=== PATIENT | female | born 1990 | race Caucasian/White ===

== ENCOUNTER 2018-11-21 21:50 | Inpatient (IN) | payer BC ==
[~2018-11-21 21:50] MED LIST: RINGERS SOLUTION,LACTATED 1,000 ML IV ONE
[2018-11-21 22:38] LABS: APPEARANCE,URINE SLIGHTLY-CLOUDY; BILIRUBIN,URINE NEGATIVE (NEGATIVE); COLOR,URINE YELLOW; GLUCOSE, URINE NEGATIVE (NEGATIVE); KETONES,URINE NEGATIVE (NEGATIVE); LEUKOCYTE ESTERASE,URINE SMALL (NEGATIVE); NITRITE,URINE NEGATIVE (NEGATIVE); PROTEIN,URINE 100 mg/dL (NEGATIVE); URINE SPECIFIC GRAVITY 1.009; UROBILINOGEN,URINE NEGATIVE mg/dL (<2.0)
[2018-11-21 22:57] LABS: URINE AMPHETAMINES SCREEN NEGATIVE; URINE BARBITURATES SCREEN NEGATIVE; URINE BENZODIAZEPINES SCREEN NEGATIVE; URINE COCAINE SCREEN NEGATIVE; URINE MARIJUANA (THC) SCREEN NEGATIVE; URINE METHADONE SCREEN NEGATIVE; URINE PHENCYCLIDINE SCREEN NEGATIVE
--- NOTE | 2018-11-21 23:57 | Admission Physical ---
Datetime Report Generated by CPN: 11/21/2018 23:57 CURRENT ADMISSION Chief Complaint: Suspected Ruptured Membranes Indication for Induction: Not Applicable Admit Impression : Term, Intrauterine ; No Active Labor; Ruptured Membranes Admit Plan: Admit to Unit; Initiate Labor Protocol ALLERGIES Medication Allergies: penicillin G (11/21/2018) OBSTETRICAL HISTORY EDC: 12/07/2018 00:00 PHYSICAL EXAM General: Normal HEENT: Normal Neurologic: Normal Thyroid: Normal Heart: Normal Lungs: Normal Breast: Normal Back: Normal Abdomen: Normal Genitourinary Exam: Normal Extremities: Normal DTRs: Normal Pelvic Type: Adequate Vital Signs: Reviewed; Within Normal Limits VAGINAL EXAM Dilatation: 1 Effacement: 70% Station: -1 Contraction Comments: q 2-3 MEMBRANES Pooling: Positive Membranes: Ruptured Amniotic Fluid Color: Clear FETUS A EGA: 37.5 Monitoring: External US FHR- Baseline: 130-140s Variability: Moderate 6-25bpm Accelerations: 15X15 Decelerations: None FHR Category: Category I Admit Comment: presents to L_D c/o leakage of fluid. She states that her water broke at 2000. She was planning to deliver at a birthing center in [place]. She is visiting here. She would like little to no intention--she declined GBS prophylaxis. She is GBS POSITIVE. She stated that she would rather the get antibx. After much discussion, she agreed to allow labs to be drawn, an IV placed and monitoring. We spoke with her animal ecologist who stated that she would have treated her GBS also. INFORMED CONSENT Signature: with User ID: [email or web address]
[2018-11-22] MEDS ORDERED: CLINDAMYCIN 900 MG/D5W RTU 900 MG/50 ML RTUPB IV ONE ×3 (00:31→17:12)
[2018-11-22] MEDS ORDERED: AMMONIA INHALANTS 10 AMPUL/BOX IH ONE (00:33)
[2018-11-22 00:45] LABS: ABSOLUTE LYMPHOCYTES (AUTO) 1.1 10^3/uL (0.5-4.7); ABSOLUTE MONOCYTES (AUTO) 0.4 10^3/uL (0.1-1.4); ABSOLUTE NEUT (AUTO) 6.7 10^3/uL (1.7-8.2); BASOPHILS % (AUTO) 0.5 % (0-2); EOSINOPHILS % (AUTO) 0.4 % (0-6); HEMATOCRIT 33.8 % (36.0-47.0); HEMOGLOBIN 11.3 g/dL (12.0-15.5); LYMPHOCYTES % (AUTO) 13.1 % (13-45); MEAN CORPUSCULAR HEMOGLOBIN 28.3 pg (27.0-33.4); MEAN CORPUSCULAR HGB CONC 33.6 g/dL (32.0-36.0); MEAN CORPUSCULAR VOLUME 84 fl (80-97); MONOCYTES % (AUTO) 5.3 % (3-13); PLATELET COUNT 133 10^3/uL (150-450); RED BLOOD COUNT 4.01 10^6/uL (3.72-5.28); RED CELL DISTRIBUTION WIDTH 13.8 % (11.5-14.0); SEGMENTED NEUTROPHILS % (AUTO) 80.7 % (42-78); TOTAL CELLS COUNTED % (AUTO) 100 %; WHITE BLOOD COUNT 8.3 10^3/uL (4.0-10.5)
[2018-11-22] MEDS ORDERED: CLINDAMYCIN 900 MG/D5W RTU 900 MG/50 ML RTUPB IV SCH (06:00)
[2018-11-22] MEDS: CLINDAMYCIN 900 MG/D5W RTU 900 MG/50 ML RTUPB IV SCH ×2 (07:44→11:03)
[2018-11-22] MEDS ORDERED: GENTAMICIN SULFATE INJ 80 MG/2 ML VIAL ONE ×2 (13:51→13:52)
[2018-11-22] MEDS ORDERED: GENTAMICIN SULFATE INJ 80 MG/2 ML VIAL IV ONE (14:00)
[2018-11-22] MEDS ORDERED: OXYTOCIN/NORMAL SALINE 20 UNIT/1,000 ML RTUINJ ONE (19:05)
[2018-11-22] MEDS ORDERED: LIDOCAINE 1% INJ-PF (10 MG/ML) 30 ML SDV ONE (21:08)
[2018-11-22] MEDS ORDERED: MISOPROSTOL 0.2 MG TABLET ONE (21:11)
[2018-11-22] MEDS ORDERED: FENTANYL CITRATE INJ/PF 100 MCG/2 ML AMPUL ONE (21:13)
[2018-11-22] MEDS ORDERED: ACETAMINOPHEN 325 MG TABLET PO PRN (21:49)
[2018-11-22] MEDS ORDERED: GLYCERIN/WITCH HAZEL LEAF 1 EACH MED..WIPE TP PRN (21:49)
[2018-11-22] MEDS ORDERED: NA PHOS,M-B/NA PHOS,DI-BA (ADULT) 133 ML ENEMA PR PRN (21:49)
[2018-11-22] MEDS ORDERED: PROMETHAZINE HCL 25 MG TABLET PO PRN (21:49)
[2018-11-22] MEDS ORDERED: PROMETHAZINE HCL INJ 25 MG/1 ML VIAL IV PRN (21:49)
[2018-11-22] MEDS ORDERED: ZOLPIDEM TARTRATE 5 MG TABLET PO PRN (21:49)
[2018-11-22] MEDS ORDERED: DIPH/PERTUSS(ACELL)/TETANUS VAC/PF 0.5 ML SYR (>=10YO) IM PRN (21:49)
[2018-11-22] MEDS ORDERED: PROMETHAZINE HCL 25 MG SUPP.RECT PR PRN (21:49)
[2018-11-22] MEDS ORDERED: OXYTOCIN/NORMAL SALINE 20 UNIT/1,000 ML RTUINJ IV PRN (21:49)
[2018-11-22] MEDS ORDERED: DIPHENHYDRAMINE HCL 25 MG CAPSULE PO PRN (21:49)
[2018-11-22] MEDS ORDERED: ACETAMINOPHEN WITH CODEINE #3 TABLET PO PRN ×2 (21:49)
[2018-11-22] MEDS ORDERED: PSEUDOEPHEDRINE HCL 30 MG TABLET PO PRN (21:49)
[2018-11-22] MEDS ORDERED: DIBUCAINE 1% OINTMENT 56 GM TP PRN (21:49)
[2018-11-22] MEDS ORDERED: MEASLES,MUMPS&RUBELLA VACC/PF 0.5 ML VIAL SUBCUT PRN (21:49)
[2018-11-22] MEDS ORDERED: BENZOCAINE/MENTHOL AEROSOL SPRAY 56 ML TOP PRN (21:49)
[2018-11-22] MEDS ORDERED: MAGNESIUM HYDROXIDE SUSP 30 ML UDCUP PO PRN (21:49)
--- NOTE | 2018-11-22 22:58 | Delivery Summary ---
Del Sum A-C Datetime Report Generated by CPN: 11/22/2018 22:58 DELIVERY PERSONNEL DELIVERY PERSONNEL: [id number] Delivery Doctor:: Deborah Gutierrez MD Labor and Delivery Nurse:: Lesley William RNautomotive porter Nurse:: Corina Galdamez RN Home Care Aide/A CLASS LINEMAN: Mandy Green, ST MATERNAL INFORMATION Delivery Anesthesia: None Medications After Delivery: Pitocin Bolus-Please Comment; Pitocin Drip 20 Units/1000ml NSS Meds After Delivery Comment: NS with Pitocin 20 units/Liter Maternal Complications: Premature Rupture of Membranes; Prolonged Labor > 20 Hrs; Prolonged Second Stage > 2 Hrs Provider Comments: VMI delivered in Direct OA presentation with tight nuchal cord delivered through. Shoulders and body delivered through. Cord doubly clamped and cut. Infant to maternal abdomen for NRP. Placenta delivered intact spontaneously. FF at U. 2nd degree perineal laceration repaired with good hemostasis. Mother and baby stable upon provider leaving the room. LABOR SUMMARY EDC: 12/07/2018 00:00 No. Babies in Womb: 1 Attempted: No Labor Anesthesia: None LABOR INFORMATION Reason for Induction: Not Applicable Onset of Labor: 11/21/2018 20:00 Complete Dilatation: 11/22/2018 16:10 Oxytocin: Augmentation Group B Beta Strep: positive Antibiotics # of Doses: 3 Antibiotics Time of Last Dose: 1718 Name of Antibiotic Given: clindamycin Steroids Given: None Reason Steroids Not Administered: Not Applicable MEMBRANES Membranes Rupture Method: Spontaneous Rupture of Membranes: 11/21/2018 20:00 Length of Rupture (hr): 25.13 Amniotic Fluid Color: Clear Amniotic Fluid Amount: Small Amniotic Fluid Odor: Normal STAGES OF LABOR Stage 1 hr: 20 Stage 1 min: 10 Stage 2 hr: 4 Stage 2 min: 58 Stage 3 hr: 0 Stage 3 min: 7 Total Time in Labor hr: 25 Total Time in Labor min: 15 VAGINAL DELIVERY Episiotomy: None Laceration #1: Perineal Laceration Extension #1: Second Degree Laceration Repair: Yes Laceration Repair Note: 2nd degree laceration repaired in usual layered fashion Sponge Count Correct: Yes Sharps Count Correct: Yes CSECTION DELIVERY Primary Indication: N/A Secondary Indication: N/A CSection Incidence: N/A Labor: N/A Elective: N/A CSection Incision: N/A BABY A INFORMATION Infant Delivery Date/Time: 11/22/2018 21:08 Method of Delivery: Vaginal Born in Route : No : N/A Forceps: N/A Vacuum Extraction: N/A Shoulder Dystocia : No PRESENTATION/POSITION BABY A Presentation: Cephalic Cephalic Presentation: Vertex Vertex Position: OA Breech Presentation: N/A PLACENTA INFORMATION BABY A Placenta Delivery Time : 11/22/2018 21:15 Placenta Method of Delivery: Spontaneous Placenta Status: Delivered SCORES BABY A Heart Rate 1 min: >100 bpm Resp Effort 1 min: Good Cry Reflex Irritability 1 min: Cough or Sneeze or Pulls Away Muscle Tone 1 min: Active Motion Color 1 min: Body [place], Extremities Blue Resuscitation Effort 1 min: Tactile Stimulation SCORE 1 MIN: 9 Heart Rate 5 min: >100 bpm Resp Effort 5 min: Good Cry Reflex Irritability 5 min: Cough or Sneeze or Pulls Away Muscle Tone 5 min: Active Motion Color 5 min: Body [place], Extremities Blue Resuscitation Effort 5 min: Tactile Stimulation SCORE 5 MIN: 9 INFORMATION BABY A Gestational Age at Delivery: 37.6 Gestational Status: Early Term- 37- 38.6 Weeks Outcome : Liveborn Condition : Stable Infant Sex: Male IDENTIFICATION BABY A Verification Date/Time: 11/22/2018 22:23 ID Band Number: [id number] Mother's Name Verified: Yes Infant RN Verifying : NDoyle RN, BRing RN WEIGHT/LENGTH BABY A Birthweight (gm): 2957 Infant Weight (lb): 6 Infant Weight (oz): 8 Infant Length (in): 19.50 Length (cm): 49.53 CORD INFORMATION BABY A No. Cord Vessels: 3 Nuchal Cord : Around Neck x1, Tight Cord Blood Taken: Yes-For Storage (Mom's Blood type +) Infant Suction: None ASSESSMENT BABY A Infant Complications: Multiple Variable Decels Physical Findings at Delivery: Caput Succedaneum; Molding of the Head Skin to Skin: Yes Infant Care By: Lai RN Transferred To: Remains with Mother BABY B INFORMATION : N/A SIGNATURES Signature: with User ID: [email or web address]
[2018-11-23] MEDS: IBUPROFEN 800 MG TABLET PO SCH ×4 (00:14→21:17)
[2018-11-23] MEDS: FAMOTIDINE 20 MG TABLET PO SCH ×3 (00:14→21:13)
[2018-11-23] MEDS: GENTAMICIN SULFATE INJ 80 MG/2 ML VIAL IV SCH ×2 (06:08→14:01)
[2018-11-23] MEDS: CLINDAMYCIN 900 MG/D5W RTU 900 MG/50 ML RTUPB IV SCH (06:09)
[2018-11-23 07:23] LABS: HEMATOCRIT 28.1 % (36.0-47.0); HEMOGLOBIN 9.4 g/dL (12.0-15.5); MEAN CORPUSCULAR HEMOGLOBIN 28.4 pg (27.0-33.4); MEAN CORPUSCULAR HGB CONC 33.6 g/dL (32.0-36.0); MEAN CORPUSCULAR VOLUME 85 fl (80-97); PLATELET COUNT 121 10^3/uL (150-450); RED BLOOD COUNT 3.32 10^6/uL (3.72-5.28); RED CELL DISTRIBUTION WIDTH 14.1 % (11.5-14.0); WHITE BLOOD COUNT 12.2 10^3/uL (4.0-10.5)
[2018-11-23] MEDS: DOCUSATE SODIUM 100 MG CAPSULE PO SCH ×2 (09:51→17:57)
[2018-11-23] MEDS: FERROUS SULFATE 325 MG TABLET PO SCH ×2 (09:51→17:57)
[2018-11-23] MEDS: SENNOSIDES/DOCUSATE 8.6-50 MG 1 EACH TABLET PO SCH (09:52)
[2018-11-23] MEDS: PRENATAL VITAMIN W DHA CAPSULE PO SCH (09:52)
--- NOTE | 2018-11-23 11:41 | PDOC PROGRESS REPORT ---
Subjective-OB Progress Note for:: 11/23/18 Subjective: reports bleeding slowing, pain controlled with current meds. denies needs. Physical Exam (OB) Vital Signs: Temp Pulse Resp BP Pulse Ox 98.2 F 76 17 95/51 L 95 11/23/18 07:17 11/23/18 07:17 11/23/18 07:17 11/23/18 07:17 11/23/18 07:17 Intake & Output 11/22/18 11/23/18 11/24/18 06:59 06:59 06:59 Intake Total 266 Balance 266 Weight 72.1 kg - Abdomen Description: Soft Hernia Present: No Fundal Description: Firm Fundal Height: u/u - u/2 - Abdominal Distension: No distension Tenderness: Nontender - Extremities Lower extremities: Chapo's sign - neg Calf: Normal, Nontender Objective-Diagnostic Laboratory: 11/23/18 07:02 11/23/18 07:02 WBC 12.2 H RBC 3.32 L Hgb 9.4 L Hct 28.1 L MCV 85 MCH 28.4 MCHC 33.6 RDW 14.1 H Plt Count 121 L Assessment and Plan(PN) - Assessment and Plan (1) Vaginal delivery Is this a current diagnosis for this admission?: Yes - Time Spent with Patient Time with patient: Less than 15 minutes Medications reviewed and adjusted accordingly: Yes - Disposition Anticipated Discharge: Home Within: within 24 hours
[2018-11-24] MEDS: IBUPROFEN 800 MG TABLET PO SCH ×2 (06:17→13:06)
--- NOTE | 2018-11-24 10:24 | PDOC DISCHARGE SUMMARY ---
Final Diagnosis Discharge Date: 11/24/18 - PP Day #2, doing well, here from [facility] there, her is a Motion Picture Camera Operator for [employer] and they were in [place] over the weekend. GBS+ A+, Rubella Immune, - Final Diagnosis (1) Carrier of group B Streptococcus Is this a current diagnosis for this admission?: Yes (2) Gestational thrombocytopenia without hemorrhage in third trimester Is this a current diagnosis for this admission?: Yes (3) Obstetrical laceration, second degree Is this a current diagnosis for this admission?: Yes (4) Premature rupture of membranes Is this a current diagnosis for this admission?: Yes (5) Prolonged second stage of labor, delivered Is this a current diagnosis for this admission?: Yes (6) Vaginal delivery Is this a current diagnosis for this admission?: Yes Discharge Data - Discharge Medication Prescriptions: Ibuprofen [Motrin 800 mg Tablet] 800 mg PO Q8 #60 tablet Home Medications: Lactobacillus Combo No.11 [Probiotic] 1 tab PO DAILY 11/21/18 [place]-3/Dha/Epa/Fish Oil [Fish Oil 1,000 mg Softgel] 1 each PO DAILY 11/21/18 Vit,Calc76/Iron/Folic [Pnv 29-1 Tablet] 1 tab PO DAILY 11/21/18 Ibuprofen [Motrin 800 mg Tablet] 800 mg PO Q8 #60 tablet 11/24/18 Reason(s) for Admission: Onset of Labor Procedures: Ultrasound Intrapartum Procedure(s): Spontaneous Vaginal Delivery Complication(s): Laceration-Perineal Laceration-Degree: 2nd - Diagnosis Test Laboratory: Temp Pulse Resp BP Pulse Ox 98.6 F 76 16 103/66 99 11/24/18 08:10 11/24/18 08:10 11/24/18 08:10 11/24/18 08:10 11/24/18 08:10 11/21/18 11/22/18 11/23/18 22:10 00:30 07:02 RBC 4.01 3.32 L Hgb 11.3 L 9.4 L Hct 33.8 L 28.1 L Urine Opiates Screen NEGATIVE - Discharge information/Instructions Discharge Activity: Activity As Tolerated, No Lifting Over 10 Pounds, Pelvic Rest Discharge Diet: As Tolerated, Regular Disposition: HOME, SELF-CARE Follow up with: [facility] in: 4, 6, Weeks - with Ob care provider
[2018-11-24] MEDS: FAMOTIDINE 20 MG TABLET PO SCH (10:50)
[2018-11-24] MEDS: FERROUS SULFATE 325 MG TABLET PO SCH ×2 (10:50→17:21)
[2018-11-24] MEDS: SENNOSIDES/DOCUSATE 8.6-50 MG 1 EACH TABLET PO SCH (10:50)
[2018-11-24] MEDS: PRENATAL VITAMIN W DHA CAPSULE PO SCH (10:50)
[2018-11-24] MEDS: DOCUSATE SODIUM 100 MG CAPSULE PO SCH ×2 (10:50→17:21)
[2018-11-24 14:33] VITALS: BP 103/64
== END 2018-11-24 19:50 | disposition home or self-care (01) | DRG 806 ==
LOC: LC 21:50 → LR 23:48 → 2S 11-22 23:40
PROVIDERS: ADMIT Student in an Organized Health Care Education/Training Program; ATTEND Student in an Organized Health Care Education/Training Program
PROC: 10E0XZZ Delivery of Products of Conception, External Approach (ICD-10-PCS; principal; 2018-11-22)
PROC: 0KQM0ZZ Repair Perineum Muscle, Open Approach (ICD-10-PCS; 2018-11-22)
DX: O42.02 Full-term premature rupture of membranes, onset of labor within 24 hours of rupture (principal); O99.12 Other diseases of the blood and blood-forming organs and certain disorders involving the immune mechanism complicating childbirth; Z37.0 Single live birth; O99.824 Streptococcus B carrier state complicating childbirth; O63.1 Prolonged second stage (of labor); O69.1XX0 Labor and delivery complicated by cord around neck, with compression, not applicable or unspecified; O70.1 Second degree perineal laceration during delivery; O76 Abnormality in fetal heart rate and rhythm complicating labor and delivery; D69.59 Other secondary thrombocytopenia; Z3A.37 37 weeks gestation of pregnancy
CPT/HCPCS: 36415; 80307; 81005; 84112; 85025; 85027; 86592; 86850; 86900; 86901; J1580; J2590; J3010; J3490